=== PATIENT | male | born 1970 | race Caucasian/White ===

== ENCOUNTER 2017-07-06 11:19 | Outpatient (CLI) | payer OTHER ==
[~2017-07-06] VITALS: Ht 162.6 cm; Wt 100.0 kg
--- NOTE | ~2017-07-06 | HEMODYNAMI ---
PATIENT:DOROTHEA PATEL MEDICAL RECORD: [id number] : 72 LOCATION:[facility] ADMISSION DATE: 07/06/17 Generatedon:07/06/201714:14 Patient name: DOROTHEA PATEL Patient #: [id number] SSN: [id number] : 1970 Date of study: 07/06/2017 Page: Of Hemodynamic Procedure Report Patient Data Patient Demographics Procedure consent was obtained First Name: DOROTHEA Gender: Male Last Name: JORGE : 1970 Middle Initial: A Age: 47 year(s) Patient #: [id number] Race: SSN: [id number] Additional ID: [id number] Contact details Address: [address] [place] [address] State: [place] City: [place] Zip code: [address] Admission Admission Data Admission Date: 07/06/2017 Admission Time: 11:19 Arrival Date: 07/06/2017 Arrival Time: 14:00 Admit Source: Other Insurance Payor: Private health insurance Height (in.): 65 BSA: 2.07 (m2) Height (cm.): 165.1 BMI: 36.94 (kg/m2) Weight (lbs.): 222 Weight (kg.): 100.7 Lab Results Lab Result Date: 07/06/2017 Lab Result Time: 0:00 Biochemistry Name Units Result Min Max BUN mg/dl 14 --(--*-)-- 7 18 Creatinine mg/dl 0.9 --(-*--)-- 0.6 1.3 CBC Name Units Result Min Max Hemoglobin g/dl 15.8 --(--*-)-- 13.5 17.5 Procedure Procedure Types Cath Procedure Diagnostic Procedure LHC LHC w/Coronaries PCI Procedure Coronary Stent Initial Miscellaneous Procedures Moderate Sedation up to 30 minutes Procedure Description Procedure Date Procedure Date: 07/06/2017 Procedure Start Time: 13:57 Procedure End Time: 14:12 Procedure Staff Name Function Buster Monge MD Performing Physician Svetlana Chan RT Scrub Jennyfer Jones RN Nurse Omar Brown RN Chief Marketing Officer Paige Suggs RT Monitor Procedure Data Cath Procedure Fluoroscopy Diagnostic fluoroscopy Total fluoroscopy Time: 2.5 time: 2.5 min min Diagnostic fluoroscopy Total fluoroscopy dose: 694 dose: 694 mGy mGy Contrast Material Contrast Material Type Amount (ml) Isovue 300 84 Entry Location Entry Primary Successful Side Size Upsize Upsize Entry Closure Succes sful Closure Location (Fr) 1 (Fr) 2 (Fr) Remarks Device Remarks Femoral Right 5 Fr 6 Fr Exoseal artery Short Estimated blood loss: 5 ml Diagnostic catheters Device Type Used For End Catheter Placement Cordis 5Fr JL 4.0 Left Coronary Catheter (MP) Angiography Cordis 5Fr 3DRC Catheter Right Coronary (MP) Angiography Cordis 5Fr Pigtail LV Angiography Catheter (MP) Procedure Complications No complications Procedure Medications Medication Administration Route Dosage Oxygen NC 2 l/min Heparin Flush Bag added to field 2 bags (1000units/500ml NS) Lidocaine 2% added to field 20 Fentanyl I.V. 50 mcg Versed I.V. 1 mg Fentanyl I.V. 50 mcg Versed I.V. 1 mg Heparin Bolus I.V. 4000 units Integrilin (Bolus I.V. 9 ml 2mg/ml) Versed I.V. 0.5 mg Hemodynamics Rest BSA: 2.07 (m2) HGB: 15.8 (g/dl) O2 Consumption: Estimated: 245.56 (ml/min) O2 Co nsumption indexed: Estimated:118.63 (ml/min/m) Heart Rate: 65 (bpm) Pressure Samples Time Site Value (mmHg) Purpose Heart Use Rate(bpm) 14:02 LV 113/12,18 Snapshot 78 14:03 AO 133/88(108) Pullback 84 14:03 LV 122/18,20 Pullback 84 Gradients Valve Time Site 1 Site 2 Mean SEP/DFP Peak To Heart Use (mmHg) (sec/min) Peak Rate (mmHg) (bpm) Aortic 14:03 LV AO 0 3 0 84 122/18,20 133/88(108) Calculations Valve P-P Mean Valve Index Valve Source Name Gradient Area Flow (cm2) Aortic 0 0 0 0 Snapshots Pre Cath Intra NCS Post Cath Vital Signs Time Heart Resp SPO2 NIBP (mmHg) Rhythm Pain Sedation Rate (ipm) (%) Status Level (bpm) 13:46:46 64 18 99 147/89(114) NSR 0 (11) 10(A) , No pain 13:51:05 63 16 99 153/91(120) NSR 0 (11) 10(A) , No pain 13:55:27 69 17 97 149/83(118) NSR 0 (11) 9(A) , No pain 13:59:33 64 20 92 126/91(109) NSR 0 (11) 9(A) , No pain 14:03:45 86 16 92 136/92(106) NSR 0 (11) 9(A) , No pain 14:08:01 85 18 94 133/94(126) NSR 0 (11) 9(A) , No pain 14:12:09 87 17 95 132/93(115) NSR 0 (11) 9(A) , No pain Medications Time Medication Route Dose Verified Delivered Reason Notes Effectiveness by by 13:49:44 Oxygen NC 2 Jennyfer Jennyfer used for l/min Jones Jones pediatric associate RN 13:49:52 Heparin Flush added 2 Jennyfer Jennyfer used for Bag to bags Jones Jones procedure (1000units/500ml field RN RN NS) 13:49:59 Lidocaine 2% added 20ml Jennyfer Jennyfer used for to vial Jones Jones procedure RN RN 13:57:49 Fentanyl I.V. 50 Jennyfer Jennyfer for sedation mcg Robert Jones RN RN 13:59:00 Versed I.V. 1 mg Jennyfer Jennyfer for sedation Jonesdenise Jones RN RN 13:59:07 Fentanyl I.V. 50 Jennyfer Jennyfer for sedation mcg Jonesdenise Jones RN RN 13:59:10 Versed I.V. 1 mg Jennyfer Jennyfer for sedation Jonesdenise Jones RN RN 14:06:31 Heparin Bolus I.V. 4000 Jennyfer Jennyfer for units Jones Jones anticoagulation RN RN 14:06:45 Integrilin I.V. 9 ml Jennyfer Jennyfer for 1ml (Bolus 2mg/ml) Jones Jones anticoagulation integrilin RN RN wasted 14:06:51 Versed I.V. 0.5 Jennyfer Jennyfer for sedation mg Jonesdenise Jones RN customer care assistant Log Time Note 13:25:59 Patient Height : 165.1 inches 13:26:03 Patient Weight : 100.7 lbs 13:26:07 Diagnostic Cath status Elective 13:26:09 Omar Brown RN sent for patient. Start room use. 13:26:10 Time tracking: Regular hours 13:26:15 Plan of Care:Hemodynamics will remain stable., Cardiac rhythm will remain stable., Comfort level will be maintained., Respiratory function will remain adequate., Patient/ family verbilizes understanding of procedure., Procedure tolerated without complication., Recovers from procedure without complications.. 13:33:08 Informed consent obtained and on chart 13:34:51 Admit Source: Other 13:35:00 Arrival Date: 07/06/2017 2:00:00 PM 13:35:07 Insurance Payor : Private health insurance 13:37:24 Lab Result : Creatinine 0.9 mg/dl 13:37:24 Lab Result : BUN 14 mg/dl 13:37:24 Lab Result : Hemoglobin 15.8 g/dl 13:41:01 Patient received from Pre/Post Procedure Room to [facility] 2 Alert and oriented. Tansferred to table in Supine position. 13:41:02 Warm blankets applied, and julio césar hugger turned on for patient comfort. 13:41:02 Correct patient and procedure confirmed by team. 13:41:03 ECG and BP/O2 sat monitors applied to patient. 13:45:03 Vital chart was started 13:45:04 Baseline sample Acquired. 13:49:44 Oxygen 2 l/min NC was administered by Jennyfer Jones RN; used for procedure; 13:49:52 Heparin Flush Bag (1000units/500ml NS) 2 bags added to field was administered by Jennyfer Jones RN; used for procedure; 13:49:59 Lidocaine 2% 20ml vial added to field was administered by Jennyfer Jones RN; used for procedure; 13:50:43 Baseline sample Acquired. 13:50:47 Rhythm: sinus rhythm 13:50:49 Full Disclosure recording started 13:51:00 H&P Date Dictated: 07/02/2017 Within 30 days and on chart., H&P Addendum completed by physician on day of procedure. (MUST COMPLETE FOR ALL OUTPATIENTS). 13:51:01 Pre-procedure instructions explained to patient. 13:51:01 Pre-op teaching completed and patient verbalized understanding. 13:51:02 Family in waiting room. 13:51:03 Patient NPO since Midnight. 13:52:51 Is the patient allergic to Iodine/contrast media? No. 13:52:52 Was the patient premedicated? No 13:52:53 Is patient on blood thinner?No 13:52:55 Patient diabetic? No. 13:52:59 Previous problem with sedation/anesthesia? No ? 13:53:06 Snore? Yes 13:53:07 Sleep apnea? No 13:53:07 Deviated septum? No 13:53:08 Opens mouth fully? Yes 13:53:09 Sticks out tongue? Yes 13:53:10 Airway obstruction? No ? 13:53:14 Dentures? No ? 13:53:18 Pre procedure: right dorsailis pedis pulse 2+ Normal; easily identifiable; not easily obliterated 13:53:28 Pre procedure: left dorsailis pedis pulse 2+ Normal; easily identifiable; not easily obliterated 13:53:30 Patient pain scale 0/10 ?. 13:53:57 IV patent on arrival in left hand with 0.9% NaCl at [facility]. 13:53:59 Lab results completed and on chart. 13:54:05 Right groin area was prepped with chlora-prep and draped in sterile fashion 13:54:06 Alarms reviewed by R. N. 13:54:06 Sharps counted by scrub and verified by R.N. 13:54:08 Physician arrived 13:54:08 --------ALL STOP TIME OUT------ 13:54:08 Final Timeout: patient, procedure, and site verified with staff and physician. All members of the team are in agreement. 13:54:10 Right groin site verified by team. 13:54:13 Physical assessment completed. ASA score P 2 - A patient with mild systemic disease as per Buster Monge MD. 13:54:17 Sedation plan: IV Moderate Sedation Versed, Fentanyl 13:54:27 Use device set Femoral Dx 13:54:28 Acist Syringe opened to sterile field. 13:54:28 Bag Decanter opened to sterile field. 13:54:29 Medline Cath Pack opened to sterile field. 13:54:29 Terumo 5Fr Raymore Sheath opened to sterile field. 13:54:30 St Ankur 260cm J .035 wire opened to sterile field. 13:54:31 Acist Hand Control opened to sterile field. 13:54:31 Acist Manifold opened to sterile field. 13:54:32 Diagnostic Infinity 5Fr Multipack catheter opened to sterile field. 13:54:32 Tegaderm 4 x 4 opened to sterile field. 13:56:33 Zero performed for pressure channel P1 13:57:05 Procedure started. 13:57:08 Local anesthetic to right femoral artery with Lidocaine 2% by Buster Monge MD.INITIAL ACCESS ONLY 13:57:22 A 5 Fr sheath was inserted into the Right Femoral artery 13:57:35 A Cordis 5Fr JL 4.0 Catheter (MP) was advanced over the wire and used for Left Coronary Angiography. 13:57:49 Fentanyl 50 mcg I.V. was administered by Jennyfer Jones RN; for sedation; 13:59:00 Versed 1 mg I.V. was administered by Jennyfer Jones RN; for sedation; 13:59:07 Fentanyl 50 mcg I.V. was administered by Jennyefrsatya Jones RN; for sedation; 13:59:10 Versed 1 mg I.V. was administered by Jennyfersatya Jones RN; for sedation; 13:59:30 LCA angiography performed. 14:00:22 Injector settings: Ml/sec: 3, Volume: 6, 14:01:26 Catheter removed. 14:01:30 A Cordis 5Fr 3DRC Catheter (MP) was advanced over the wire and used for Right Coronary Angiography. 14:01:41 RCA angiography performed. 14:01:44 Injector settings: Ml/sec: 3, Volume: 6, 14:01:46 Catheter removed. 14:02:02 A Cordis 5Fr Pigtail Catheter (MP) was advanced over the wire and used for LV Angiography. 14:02:52 LV hemodynamics recorded. 14:02:53 LV gram done using HUDSON 14:02:55 Injector settings: Ml/sec: 5, Volume: 15, 14:03:00 EF : 55 % 14:03:11 Catheter removed. 14:03:12 Proceeding to intervention. 14:03:43 Davies Whisper J 300cm 0.014 guide wire opened to sterile field. 14:03:47 Music DealersixCompak Inflation Kit opened to sterile field. 14:03:50 Terumo 6Fr Raymore Sheath opened to sterile field. 14:04:05 Medtronic Launcher 6Fr JL 4.0 guide catheter opened to sterile field. 14:04:16 Sheath upsized to a 6 Fr Short. 14:04:57 6 Fr jl 4 guide catheter was inserted over the wire 14:05:33 whisper wire advanced. 14:06:31 Heparin Bolus 4000 units I.V. was administered by Jennyfer Jones RN; for anticoagulation; 14:06:45 Integrilin (Bolus 2mg/ml) 9 ml I.V. was administered by Jennyfer Jones RN; for anticoagulation; 1ml integrilin wasted 14:06:51 Versed 0.5 mg I.V. was administered by Jennyfer Jones RN; for sedation; 14:07:14 Wire advanced across lesion. 14:08:57 Inflation Number: 1 A Ashvin OTW 3.0 x 15 stent was prepped and advanced across the Mid LAD. The stent was deployed at 14 MARTA for 0:30 (min:sec). 14:10:05 Stent catheter was removed intact over wire. 14:10:06 Wire removed. 14:10:06 Guide catheter removed. 14:10:14 Cordis 6Fr Exoseal opened to sterile field. 14:10:24 Sheath removed intact; hemostasis achieved with Exoseal to the Right Femoral artery. 14:10:26 Procedure ended.(Physican Out) 14:10:47 Fluoroscopy time 02.50 minutes. 14:11:04 Fluoroscopy dose: 694 mGy 14:11:04 Flurop Dose total: 694 14:11:11 Contrast amount:Isovue 300 84ml. 14:11:12 Sharps counted by scrub and verified by R.N. 14:11:13 Insertion/operative site no bleeding no hematoma. 14:11:16 Post-op/insertion site Right Femoral artery dressed using a 4 x 4 and Tegaderm. 14:11:18 Post right femoral artery:stable 14:11:20 Post Procedure Pulses reassessed and unchanged 14:11:22 Post procedure rhythm: unchanged. 14:11:25 Estimated blood loss: 5 ml 14:11:26 Post procedure instruction explained to patient.Patient verbalizes understanding. 14:11:27 Patient needs reinforcement of post procedure teaching. 14:12:03 Procedure type changed to Cath procedure, Diagnostic procedure, LHC, LHC w/Coronaries, PCI procedure, Coronary Stent Initial, Miscellaneous Procedures, Moderate Sedation up to 30 minutes 14:12:04 Procedure and supply charges have been captured, reviewed, submitted and are correct. 14:12:09 Procedure Complication : No complications 14:12:11 Vital chart was stopped 14:12:12 See physician's report for complete and final results. 14:12:15 Report given to Pre/Post Procedure Room. 14:12:19 Patient transfered to Pre/Post Procedure Room with Stretcher. 14:12:20 Procedure ended. 14:12:20 Full Disclosure recording stopped 14:12:28 ACC-PCI Only Patient was given prescriptions, or instructed by Buster Monge MD to start/continue the following medications upon discharge: Plavix 14:12:30 End room use (Document Last) Intervention Summary Intervention Notes Time ActionType Lesion and Equipment Action# Pressure Duration Attributes Used 14:08:57 Place stent Mid LAD Ashvin OTW 1 14 00:30 3.0 x 15 stent Device Usage Item Name Manufacture Quantity Catalog Hospital Part Current Minimal Lot# / Number Charge Number Stock Stock Serial# Code Acist Acist 1 27455 186175 332532 887685 20 Syringe Medical Systems Inc Bag Microtek 1 2002S 807616 20213 071234 5 DecCoCollage Medical Inc. Medline Cardinal 1 [id number] 351385 37849 675320 5 Cath Pack Health Terumo 5Fr Terumo 1 [id number] 905792 322227 545020 [address] Ank[address] St Ankur 1 541317 259511 200134 776496 30 260cm J .035 wire Acist Hand Acist 1 22300 932845 224836 412232 5 Control Medical Systems Inc Acist Acist 1 96188 079036 734408 459325 5 Manifold Medical Systems Inc Diagnostic Cardinal 1 [id number] 338342 04366 668343 30 Infinity Health 5Fr Multipack catheter Tegaderm 4 3M 1 1626W 019064 484209 032258 5 x 4 Cordis 5Fr Cardinal 1 306320 5 JL 4.0 Health Catheter (MP) Cordis 5Fr Cardinal 1 257256 5 3DRC Health Catheter (MP) Cordis 5Fr Cardinal 1 764308 5 Pigtail Health Catheter (MP) Davies Davies 1 [id number] 976986 372349 548738 5 Whisper J Vascular 300cm 0.014 guide wire [facility] 1 [id number] 504928 462664 537253 15 Music Messenger (MM)ixFilm Fresh Medical Inflation Kit Terumo 6Fr Terumo 1 [id number] 516629 401676 235449 40 Raymore Sheath Medtronic Medtronic 1 [id number] 973668 58889 789332 1 Launcher 6Fr JL 4.0 guide catheter [place] OTW Medtronic 1 [id number] 788421 830147 747380 5 [id number] 3.0 x 15 stent Cordis 6Fr Cardinal 1 EX600 654600 145456 746488 10 [facility] Signature Audit [place] Stage Time Signature Unsigned Intra-Procedure 07/06/2017 Paige Suggs 2:14:45 PM RT(R) Signatures Monitor : Paige Suggs RT Signature : Date : Time : [place] [id number] [facility] [place] [address]
[~2017-07-06 11:19] MED LIST: BAYER CHEWABLE81 MG PO
[2017-07-06] MEDS ORDERED: ASPIRIN325 MG PO (11:56)
[2017-07-06 12:02] VITALS: BP 160/99; Ht 162.6 cm; Wt 100.0 kg
[2017-07-06 12:14] LABS: BASOPHILS 0.3 % (0-2); EOSINOPHILS 1.5 % (0-7); HEMATOCRIT 46.8 % (42.0-54.0); HEMOGLOBIN 15.8 g/dL (13.5-17.5); IMMATURE GRANULOCYTES 0.1 % (0-5); LYMPHOCYTES 27.8 % (15-50); MCH 28.6 pg (26.0-34.0); MCHC 33.8 g/dL (31.0-37.0); MCV 84.8 fL (80.0-100.0); MEAN PLATELET VOLUME 9.6 fL (7.4-10.4); MONOCYTES 9.8 % (2-11); NEUTROPHILS 60.5 % (40-80); PLATELET COUNT 232 10x3/uL (130-400); RBC 5.52 10x6/uL (4.20-6.10); RDW 12.7 % (11.5-14.5); WBC 6.8 10x3/uL (4.8-10.8)
[2017-07-06 12:24] LABS: CALC OSMOLALITY 278 mosm/kg (275-300); CALCIUM 9.3 mg/dL (8.5-10.1); CARBON DIOXIDE 30.8 mmol/L (21.0-32.0); CHLORIDE - SERUM 103 mmol/L (98-107); CREATININE - SERUM 0.9 mg/dL (0.6-1.3); GLUCOSE 89 mg/dL (74-106); POTASSIUM - SERUM 3.8 mmol/L (3.5-5.1); SODIUM 140 mmol/L (136-145); UREA NITROGEN 14 mg/dL (7-18); eGFR NON AFRICAN AMERICAN > 90 mL/min (90-120)
--- NOTE | 2017-07-06 14:32 | NUR ---
1425 RECEIVED PT FROM FINGERNAIL TECHNICIAN, PT IS ALERT. PT DENIES ANY C/O CHEST PAIN OR NAUSEA. DRESSING TO RIGHT GROIN IS CDI, AREA IS SOFT AND NONTENDER. PEDAL PULSES PALPABLE, CAP REFILL IS BRISK. PT INSTRUCTED TO KEEP HEAD TO PILLOW AND RIGHT LEG STRAIGHT AND VERBALIZES UNDERSTANDING. FAMILY AT BEDSIDE AND CALL LIGHT IS IN REACH.
[2017-07-06] MEDS ORDERED: PLAVIX75 MG PO (14:35)
[2017-07-06] MEDS ORDERED: BAYER CHEWABLE81 MG PO (14:36)
--- NOTE | 2017-07-06 14:40 | NUR ---
1440 PT SHANELL PO FLUIDS AND SANDWICH WITH NO C/O NAUSEA. DRESSING TO RIGHT GROIN IS CDI, AREA IS SOFT AND NONTENDER. PEDAL PULSES PALPALE. PT DENIES NEEDS AT THIS TIME.
--- NOTE | 2017-07-06 14:56 | NUR ---
1455 PT DENIES NEEDS AT THIS TIME. DENIES ANY C/O. FAMILY AT BEDSIDE, CALL LIGHT IN REACH. PEDAL PULSES PALPABLE, DRESSING REMAINS CDI.
--- NOTE | 2017-07-06 15:19 | NUR ---
1515 PT DENIES ANY C/O. DRESSING TO RIGHT GROIN IS CDI, AREA IS SOFT AND NONTENDER. PEDAL PULSES PALPABLE, FOOT IS WARM WITH BRISK CAP REFILL. FAMILY AT BEDSIDE, CALL LIGHT IN REACH.
--- NOTE | 2017-07-06 15:54 | NUR ---
1545 RIGHT GROIN DRESSING REMAINS CDI, AREA IS SOFT AND NONTENDER. PEDAL PULSES PALPABLE, FEET WARM. PT DENIES ANY C/O CHEST PAIN OR NAUSEA. FAMILY AT BEDSIDE, CALL LIGHT IN REACH.
--- NOTE | 2017-07-06 17:07 | NUR ---
1630 PT DENIES ANY C/O. RIGHT GROIN IS SOFT AND NONTENDER WITH NO BLEDING NOTED TO DRESSING. PEDAL PULSES PALPABLE, CAP REFILL IS BRISK. VSS. AT BEDSIDE, WILL CONTINUE TO MONITOR.
--- NOTE | 2017-07-06 17:24 | NUR ---
1720 VSS, PT DENIES NEEDS AT THIS TIME. CALL LIGHT IN REACH. DRESSING CDI.
--- NOTE | 2017-07-06 18:04 | NUR ---
1800 HOB ELEVATED 45 DEGREES, DRESSING CDI, CATH AREA SOFT. PEDAL PULSES PALPABLE. PT HAS SHANELL PO FLUIDS AND FOOD WITH NO C/O.
--- NOTE | 2017-07-06 18:36 | NUR ---
1630 IV DC'D WITH CATH INTACT. DRESSING TO RIGHT GROIN REMAINS STABLE WITH NO BLEEDING OR HEMATOMA NOTED. PT DRESSING FOR DC TO HOME.
--- NOTE | 2017-07-06 18:39 | NUR ---
1845 PT HAS AMBULATED TO THE BATHROOM AND VOIDED QS. DENIES ANY C/O UPON DC. PT ESCORTED TO PRIVATE AUTO VIA WC BY NURSE WITH DRIVING HIM HOME.
--- NOTE | 2017-07-08 10:33 | OP ---
PATIENT NAME: DOROTHEA PATEL MEDICAL RECORD: [id number] :72 LOCATION:D.CAT ADMISSION DATE: SURGEON: GARCIA POTTER MD DATE OF OPERATION: 07/06/2017 PROCEDURES: Left heart catheterization, coronary angiography, right femoral approach. CATHETERS: A 5-Icelandic sheath, 5/4 left and right Renetta, 5/4 pig. The procedure was well tolerated and the patient returned to hopper. Sheath removed. ExoSeal device was placed. FINDINGS: Left ventriculography in 30-degree HUDSON view: Normal wall motion, normal systolic function. CORONARY ANATOMY: LEFT MAIN: Left main is free of disease. LAD: An area of previous stenting shows an 80% stenosis in the mid portion of the stent. CIRCUMFLEX: Left dominant system. Circumflex had an area of previous stenting that is widely patent, has a small terminal OM with an ostial stenosis of 7%-8%, probably too small for intervention. RIGHT CORONARY ARTERY: Rudimentary. PLAN: PTCA stenting to the LAD momentarily. DESCRIPTION OF PROCEDURE: A 5-Icelandic sheath was exchanged for a 6-Icelandic sheath. A JL4 guiding catheter provided excellent guide catheter support followed by a 300 cm Orofino XT wire was placed across the site occluded LAD down to a portion of vessel. Stent deployed was a 3.0 x 15 mm Roosevelt stent up to 14 atmospheres for 45 seconds. Final angiography shows excellent resolution of 80% stenosis, no significant residual. FORTINO flow was 3 throughout the procedure. Integrilin was used in the case. Plavix was loaded in the lab. Sheath was closed with ExoSeal device. TRANSINT:[id number] Voice Confirmation ID: [id number] DOCUMENT ID: [id number] GARCIA POTTER MD at 1033 CC: [id number] DICTATION DATE: 07/06/17 1419 INVENTORY ANALYST: 07/06/17 2214 DEP CLI 07/06/[address] [address]
== END 2017-07-06 18:45 | disposition home or self-care (01) ==
LOC: D.CATH 11:19
PROVIDERS: Internal Medicine Interventional Cardiology
DX: I20.9 Angina pectoris, unspecified (principal); E78.5 Hyperlipidemia, unspecified; E07.9 Disorder of thyroid, unspecified; Z01.812 Encounter for preprocedural laboratory examination